=== PATIENT | female | born 1990 | race Caucasian/White ===

== ENCOUNTER 2019-10-02 11:39 | Emergency (ER) | payer OTHER ==
[~2019-10-02] VITALS: Ht 180.3 cm; Wt 127.0 kg
[~2019-10-02 11:39] MED LIST: IMPLANON68 MG SQ; MACROBID 100 M100 MG PO; NORCO 5-325 TA1 EACH PO; PYRIDIUM200 MG PO
== END 2019-10-02 13:13 | disposition home or self-care (01) ==
LOC: ED 11:39
DX: S89.91XA Unspecified injury of right lower leg, initial encounter (principal); F17.200 Nicotine dependence, unspecified, uncomplicated; X50.1XXA Overexertion from prolonged static or awkward postures, initial encounter
CPT/HCPCS: 73560; 99283-25; 99406

== ENCOUNTER 2025-05-05 22:43 | Inpatient (IN) | payer OTHER ==
[~2025-05-05] VITALS: Ht 182.9 cm; Wt 151.5 kg
[2025-05-05 23:36] LABS: AMNISURE ROM TEST POSITIVE
[2025-05-05] MEDS ORDERED: TERBUTALINE SULFATE 1 MG/ML AMP SUB-Q PRN (23:45)
[2025-05-05] MEDS ORDERED: CALCIUM CARBONATE 500 MG CHEW PO PRN (23:45)
[2025-05-05] MEDS ORDERED: MAGNESIUM HYDROXIDE/AL HYDROX 30 ML CUP PO PRN (23:45)
[2025-05-05] MEDS ORDERED: LACTATED RINGER'S 1,000 ML IV PRN (23:45)
[2025-05-05] MEDS ORDERED: LIDOCAINE HCL 1% 30 ML SDV INJ PRN (23:45)
[2025-05-06 00:39] LABS: MCH 30.0 PG (25.6-32.2); MCHC 33.5 g/dL (32.2-35.5); MCV 89.7 fL (79.4-94.8); RBC 4.16 M/uL (3.93-5.22)
[2025-05-06 01:18] LABS: ABO A; ANTIBODY SCREEN NEGATIVE; RH POSITIVE
[2025-05-06 01:33] VITALS: BP 127/69
[2025-05-06] MEDS ORDERED: OXYTOCIN/0.9 % SODIUM CHLORIDE 30 UNITS/500 ML BAG IV SCH (03:15)
[2025-05-06] MEDS ORDERED: fentaNYL citrate 100 MCG/2 ML VIAL ONE (12:23)
[2025-05-06] MEDS ORDERED: ROPIVACAINE 0.2% 200 ML BAG ONE (12:23)
[2025-05-06] MEDS ORDERED: METOCLOPRAMIDE HCL 10 MG/2 ML SDV IV PRN (13:45)
[2025-05-06] MEDS ORDERED: ROPIVACAINE 0.2% 200 ML BAG EPIDURAL SCH (14:00)
[2025-05-06] MEDS ORDERED: LACTATED RINGER'S 500 ML IV PRN (14:00)
[2025-05-06] MEDS ORDERED: LACTATED RINGER'S 2,000 ML IV ONE (14:00)
[2025-05-06] MEDS ORDERED: ePHEDrine sulfate 5 MG/ML SYRINGE IV PRN (14:00)
[2025-05-06 15:46] LABS: AMPHETAMINES, URINE NEGATIVE (NEGATIVE); BARBITURATES, URINE NEGATIVE (NEGATIVE); BENZODIAZEPINE, URINE NEGATIVE (NEGATIVE); CANNABINOID, URINE NEGATIVE (NEGATIVE); COCAINE, URINE NEGATIVE (NEGATIVE); ECSTASY, URINE NEGATIVE (NEGATIVE); FENTANYL, URINE NEGATIVE (NEGATIVE); METHADONE, URINE NEGATIVE (NEGATIVE); OPIATES, URINE NEGATIVE (NEGATIVE); OXYCODONE, URINE NEGATIVE (NEGATIVE); PHENCYCLIDINE, URINE NEGATIVE (NEGATIVE)
[2025-05-06] MEDS ORDERED: OXYTOCIN/0.9 % SODIUM CHLORIDE 500 ML IV SCH (18:00)
[2025-05-07] MEDS ORDERED: CALCIUM CARBONATE 500 MG CHEW PO PRN (03:15)
[2025-05-07] MEDS ORDERED: LIDOCAINE 2% VISCOUS 6 ML SYR TOP ONE ×2 (03:15)
[2025-05-07] MEDS ORDERED: HYDROCODONE/ACETA 5/325 TAB PO PRN (03:15)
[2025-05-07] MEDS ORDERED: BENZOCAINE 60 ML AEROSOL TOP PRN (03:15)
[2025-05-07] MEDS ORDERED: MAGNESIUM HYDROXIDE 30 ML UDC PO PRN (03:15)
[2025-05-07] MEDS ORDERED: WITCH HAZEL/GLYCERIN 1 EA PAD TOP PRN (03:15)
[2025-05-07] MEDS ORDERED: ACETAMINOPHEN 500 MG TAB PO PRN (03:15)
[2025-05-07] MEDS ORDERED: OXYTOCIN/0.9 % SODIUM CHLORIDE 500 ML IV SCH (03:15)
[2025-05-07] MEDS ORDERED: IBUPROFEN 800 MG TAB PO PRN (03:15)
[2025-05-07] MEDS ORDERED: MAGNESIUM HYDROXIDE/AL HYDROX 30 ML CUP PO PRN (03:15)
[2025-05-07] MEDS ORDERED: HYDROCORTISONE ACETATE 25 MG SUPP PR PRN (03:15)
[2025-05-07] MEDS ORDERED: SENNOSIDES/DOCUSATE 1 EA TAB PO SCH (09:00)
== END 2025-05-08 10:28 | disposition home or self-care (01) | DRG 806 ==
LOC: FBCO 22:43 → FBC 23:40
PROVIDERS: ADMIT Obstetrics & Gynecology; ATTEND Obstetrics & Gynecology
PROC: 10E0XZZ Delivery of Products of Conception, External Approach (ICD-10-PCS; principal; 2025-05-07)
PROC: 0HQ9XZZ Repair Perineum Skin, External Approach (ICD-10-PCS; 2025-05-07)
PROC: 3E0R3BZ Introduction of Anesthetic Agent into Spinal Canal, Percutaneous Approach (ICD-10-PCS; 2025-05-07)
PROC: 00HU33Z Insertion of Infusion Device into Spinal Canal, Percutaneous Approach (ICD-10-PCS; 2025-05-07)
DX: O42.12 Full-term premature rupture of membranes, onset of labor more than 24 hours following rupture (principal); O98.52 Other viral diseases complicating childbirth; Z37.0 Single live birth; Z3A.39 39 weeks gestation of pregnancy; B00.9 Herpesviral infection, unspecified; O70.0 First degree perineal laceration during delivery; O69.81X0 Labor and delivery complicated by cord around neck, without compression, not applicable or unspecified; Z88.8 Allergy status to other drugs, medicaments and biological substances; Z87.891 Personal history of nicotine dependence; Z90.89 Acquired absence of other organs; Z79.899 Other long term (current) drug therapy
CPT/HCPCS: 01960; 36415; 80307; 84112; 85027; 86850; 86900; 86901; A9270; J2795; J3010; J7121